=== PATIENT | male | born 1950 | race Caucasian/White ===

== ENCOUNTER 2021-12-15 06:52 | Observation (INO) ==
[2021-12-15] MEDS ORDERED: fentaNYL 100 mcg/2 ml 50 MCG/ML VIAL ONE (08:09)
[2021-12-15] MEDS ORDERED: Midazolam 5 mg/5 ml VIAL 1 mg/ml 5 ml VIAL (5 mg) ONE (08:09)
[2021-12-15] MEDS ORDERED: nitroGLYCERIN DRIP (PHA MIX) 25,000 MCG/250 ML BAG ONE (08:10)
[2021-12-15] MEDS ORDERED: VERAPAMIL 2.5 MG/ML 2 ML VIAL ** 5 mg/2 ml ONE (08:10)
[2021-12-15] MEDS ORDERED: Heparin 1,000 UNIT/ML 10 ml (10,000 UNITS) CATHLAB/DIALYSIS ONE (08:10)
[2021-12-15] MEDS ORDERED: Iohexol 350 (CONTRAST) 200 ML MDV IV ONE ×2 (08:10→09:45)
[2021-12-15] MEDS ORDERED: Heparin 2 UNITS/ML 1000 mls 2,000 ML IV ONE (08:10)
[2021-12-15] MEDS ORDERED: Lidocaine 1% MPF 5 ML VIAL ONE (08:11)
[2021-12-15] MEDS ORDERED: Phenylephrine 40 mcg/mL 10mL (400mcg) SYRINGE ONE (09:13)
[2021-12-15 09:40] LABS: POC SO2 94 %
[2021-12-15 09:40] LABS: POC SO2 68 %
[2021-12-15] MEDS ORDERED: Bivalirudin 250 MG VIAL ONE ×2 (09:42→10:16)
[2021-12-15] MEDS ORDERED: Heparin 2 UNITS/ML 1000 mls 1,000 ML IV ONE (09:53)
[2021-12-16 05:43] LABS: ABS Basophils 0.1 10^3/ul (0-0.2); ABS Eosinophils 0.2 10^3/ul (0-0.6); ABS Monocytes 0.9 10^3/ul (0-0.8); ABS Neutrophils 5.5 10^3/ul (1.5-7.7); Eosinophil % 2.3 %; Hematocrit 44 % (42-52); Hemoglobin 15.3 g/dL (14.0-18.0); Lymphocyte % 30.8 %; Mean Corpuscular HGB Conc 35 g/dL (31-36); Mean Corpuscular Hemoglobin 31 pg (27-31); Mean Corpuscular Volume 90 fL (80-94); Mean Platelet Volume 8.2 fL (7.4-10.4); Platelet Count 151 10^3/uL (150-450); Red Blood Count 4.91 10^6 /uL (4.18-5.48); Red Cell Distribution Width 13 % (10-15); White Blood Count 9.7 10^3/uL (3.5-10.8)
[2021-12-16 06:37] LABS: Albumin 3.9 g/dL (3.2-5.2); Albumin/Globulin Ratio 1.6 (1-3); Globulin 2.5 g/dL (2-4); Magnesium 2.1 mg/dL (1.9-2.7); Potassium 4.3 mmol/L (3.5-5.0); Total Bilirubin 0.5 mg/dL (0.2-1.0); Total Protein 6.4 g/dL (6.4-8.9); eGFR CKD-EPI 79.5 (>60)
[2021-12-16 11:27] VITALS: BP 133/70
== END 2021-12-16 11:27 | disposition home or self-care (01) ==
LOC: CHICATH 06:52 → ICU 10:52 → INTOOBSV 10:52
PROVIDERS: ATTEND Internal Medicine

== ENCOUNTER 2024-05-19 17:16 | Inpatient (IN) ==
[2024-05-19] MEDS: Ondansetron 4 mg VIAL 2 MG/ML 2 ml VIAL IV ONE (22:12)
[2024-05-19] MEDS: Lactated Ringers 1000 ml BAG 1,000 ML IV ONE (22:12)
[2024-05-19 22:36] LABS: Hematocrit 47.4 % (38-53); Hemoglobin 16.1 g/dL (13.2-16.3); Mean Corpuscular Hemoglobin 30.2 pg (27-33); Mean Corpuscular Volume 88.9 fL (80-97); Platelet Count 189 10^3/uL (150-450); Red Blood Count 5.34 10^6/uL (4.06-5.63); Red Cell Distribution Width 13.9 % (12-17); White Blood Count 20.7 10^3/uL (3.6-10.2)
[2024-05-19 23:11] LABS: ALT 95 U/L (7-52); Albumin/Globulin Ratio 1.1 (1-3); Alkaline Phosphatase 89 U/L (35-149); Anion Gap 10 mmol/L (2-16); Blood Urea Nitrogen 26 mg/dL (6-24); C Reactive Protein 85.75 mg/L (<8.01); CO2 Carbon Dioxide 23 mmol/L (22-32); Calcium 9.5 mg/dL (8.6-10.3); Chloride 99 mmol/L (101-111); Creatinine, Serum 1.17 mg/dL (0.67-1.17); Globulin 3.5 g/dL (2-4); Glucose 137 mg/dL (70-100); Sodium 132 mmol/L (135-145); Total Bilirubin 0.5 mg/dL (0.2-1.0); Total Protein 7.5 g/dL (6.4-8.9); eGFR CKD-EPI 65.8 (>60)
[2024-05-20 00:05] LABS: Urine Appearance Turbid; Urine Bilirubin Negative (Negative); Urine Blood Trace (Negative); Urine Color Yellow; Urine Glucose Negative (Negative); Urine Ketones Negative (Negative); Urine Nitrite 2+ (Negative); Urine Protein 1+ (>=30 mg/dL) (Negative); Urine Specific Gravity 1.029 (1.002-1.030); Urine Urobilinogen Negative (Negative); Urine pH 5.5 (5.0-8.0)
[2024-05-20 00:29] LABS: ABS Basophils 0.1 10^3/uL (0.0-0.1); ABS Eosinophils 0.1 10^3/uL (0.0-0.5); ABS Lymphocytes 2.5 10^3/uL (1.0-4.8); ABS Monocytes 1.6 10^3/uL (0.0-1.1); ABS Neutrophils 16.5 10^3/uL (1.5-7.6); Eosinophil % 0.5 %; Lymphocyte % 11.9 %
[2024-05-20 00:31] LABS: Urine Bacteria 3+ /HPF (Absent); Urine Red Blood Cell 1+(3-5/hpf) /HPF (0-Trace); Urine White Blood Cell 3+(>20/hpf) /HPF (0-Trace)
[2024-05-20] MEDS: Iohexol 350 (CONTRAST) 500 ML MDV IV ONE (01:18)
[2024-05-20 01:47] LABS: Potassium Redraw 4.9 mmol/L (3.5-5.0)
[2024-05-20] MEDS: cefTRIAXone 2 gm/50 mL D5W 2 GM/50 ML BAG IV ONE (03:01)
[2024-05-21] MEDS: cefTRIAXone 2 gm/50 mL D5W 2 GM/50 ML BAG IV SCH (02:55)
[2024-05-21 07:45] LABS: Hematocrit 43.9 % (38-53); Hemoglobin 14.9 g/dL (13.2-16.3); Mean Corpuscular Hemoglobin 30.5 pg (27-33); Mean Corpuscular Volume 89.9 fL (80-97); Mean Platelet Volume 8.3 fL (7.5-11.2); Platelet Count 156 10^3/uL (150-450); Red Blood Count 4.89 10^6/uL (4.06-5.63); Red Cell Distribution Width 13.8 % (12-17); White Blood Count 16.4 10^3/uL (3.6-10.2)
[2024-05-21] MEDS ORDERED: Polyethylene Glycol 3350 17 GM PACKET PO PRN (07:46)
[2024-05-21] MEDS ORDERED: Senna TAB 8.6 mg TAB PO PRN (07:46)
[2024-05-21 08:36] LABS: Anion Gap 10 mmol/L (2-16); Blood Urea Nitrogen 21 mg/dL (6-24); CO2 Carbon Dioxide 24 mmol/L (22-32); Calcium 8.1 mg/dL (8.6-10.3); Chloride 100 mmol/L (101-111); Creatinine, Serum 1.02 mg/dL (0.67-1.17); Glucose 134 mg/dL (70-100); Sodium 134 mmol/L (135-145); eGFR CKD-EPI 77.6 (>60)
[2024-05-21] MEDS ORDERED: Zosyn per Pharmacy NOTE FOLLOW UP SCH (09:00)
[2024-05-21 09:07] LABS: ABS Basophils 0.1 10^3/uL (0.0-0.1); ABS Eosinophils 0.1 10^3/uL (0.0-0.5); ABS Lymphocytes 2.5 10^3/uL (1.0-4.8); ABS Monocytes 1.4 10^3/uL (0.0-1.1); ABS Neutrophils 12.1 10^3/uL (1.5-7.6); Eosinophil % 0.5 %; Lymphocyte % 15.6 %; RBC Morphology Normal (Normal)
[2024-05-21] MEDS: Piperacillin/Tazobac 3.375 BAG 3.375 GM/100 ML BAG IV ONE (09:42)
[2024-05-21] MEDS: Cholecalciferol (VIT D3) 1,000 unit TAB PO SCH (10:18)
[2024-05-21] MEDS: METFORMIN 500 MG PO SCH (10:19)
[2024-05-21] MEDS ORDERED: Naloxone 0.4 mg VIAL 0.4 mg/ml 1 ml VIAL IV PRN ×3 (10:23→11:45)
[2024-05-21] MEDS ORDERED: fentaNYL 100 mcg/2 ml 50 MCG/ML VIAL IV PRN ×2 (10:23→11:45)
[2024-05-21] MEDS ORDERED: Ondansetron 4 mg VIAL 2 MG/ML 2 ml VIAL IV PRN ×2 (10:23→11:45)
[2024-05-21] MEDS ORDERED: Metoclopramide 5 MG/ML VIAL (10 mg) IV PRN (10:23)
[2024-05-21] MEDS: Buffered Lidocaine 1% SYRIN 1 ml INTRADERM ONE (11:05)
[2024-05-21] MEDS: Scopolamine 1 mg/72hr PATCH TRANSDERM ONE (11:06)
[2024-05-21] MEDS ORDERED: Propofol 10 MG/ML 20 ML BTL ONE (11:36)
[2024-05-21] MEDS ORDERED: fentaNYL 250 mcg/5 ml 50 MCG/ML 5 ml VIAL (250 MCG) ONE (11:36)
[2024-05-21] MEDS ORDERED: Lidocaine 2% PF 5 ML VIAL ONE (11:37)
[2024-05-21] MEDS ORDERED: Rocuronium 50 mg VIAL 10 mg/ml 5 ml VIAL (50 mg) ONE (11:37)
[2024-05-21] MEDS ORDERED: HYDROmorphone 1 MG/1 ML SYRINGE IV PRN (11:45)
[2024-05-21] MEDS ORDERED: Phenylephrine 40 mcg/mL 10mL (400mcg) SYRINGE ONE (11:55)
[2024-05-21] MEDS ORDERED: Midazolam 2 mg/2 ml VIAL 1 mg/ml 2 ml VIAL (2 mg) ONE (14:33)
[2024-05-21] MEDS ORDERED: Dexamethasone IV 4 MG/ML VIAL 1 ml VIAL ONE (14:39)
[2024-05-21] MEDS ORDERED: Ondansetron 4 mg VIAL 2 MG/ML 2 ml VIAL ONE (14:39)
[2024-05-21] MEDS ORDERED: Desflurane 240 ML INH ONE (15:04)
[2024-05-21] MEDS: Ampicillin ADVAN 2 GM in NS 0.9% 100 ML 100 ML IVPB ONE (15:35)
[2024-05-21] MEDS: Lactated Ringers 1000 ml BAG 1,000 ML IV SCH (15:43)
[2024-05-21] MEDS: Metoclopramide 5 MG/ML VIAL (10 mg) IV SLOW PU ONE (15:43)
[2024-05-21] MEDS: NS 0.9% IVPB ONE (15:55)
[2024-05-21] MEDS: GENTAMICIN ADULT IVPB ONE (15:55)
[2024-05-21] MEDS: ZOSYN 3.375 GM Q8H per EXTENDED INFUSION IV SCH ×2 (16:32→17:36)
[2024-05-21] MEDS: Enoxaparin 40 MG/0.4 ML SYR SUBCUT SCH (20:18)
[2024-05-22] MEDS: Calcium Carb (TUMS) 500 mg CHEW TAB PO PRN (01:34)
[2024-05-22 06:10] LABS: Hematocrit 42.7 % (38-53); Hemoglobin 14.2 g/dL (13.2-16.3); Mean Corpuscular Hemoglobin 29.8 pg (27-33); Mean Corpuscular Hgb Conc 33.3 g/dL (31-36); Mean Corpuscular Volume 89.3 fL (80-97); Mean Platelet Volume 8.5 fL (7.5-11.2); Platelet Count 176 10^3/uL (150-450); Red Blood Count 4.78 10^6/uL (4.06-5.63); Red Cell Distribution Width 13.7 % (12-17); White Blood Count 34.2 10^3/uL (3.6-10.2)
[2024-05-22] MEDS: Ondansetron 4 mg VIAL 2 MG/ML 2 ml VIAL IV PRN (06:45)
[2024-05-22 06:48] LABS: Calcium 8.2 mg/dL (8.6-10.3); Creatinine, Serum 1.05 mg/dL (0.67-1.17); Potassium 4.6 mmol/L (3.5-5.0)
[2024-05-22 07:28] LABS: ABS Basophils 0.2 10^3/uL (0.0-0.1); ABS Lymphocytes 2.7 10^3/uL (1.0-4.8); ABS Monocytes 2.2 10^3/uL (0.0-1.1); ABS Nucleated RBC 0.01 10^3/ul; Eosinophil % 0.1 %
[2024-05-23 06:05] LABS: ABS Basophils 0.1 10^3/uL (0.0-0.1); ABS Eosinophils 0.1 10^3/uL (0.0-0.5); ABS Lymphocytes 2.2 10^3/uL (1.0-4.8); ABS Monocytes 1.3 10^3/uL (0.0-1.1); ABS Neutrophils 11.5 10^3/uL (1.5-7.6); Eosinophil % 0.6 %; Hematocrit 40.7 % (38-53); Lymphocyte % 14.4 %; Mean Corpuscular Hemoglobin 30.6 pg (27-33); Mean Corpuscular Hgb Conc 34.3 g/dL (31-36); Mean Corpuscular Volume 89.3 fL (80-97); Mean Platelet Volume 8.3 fL (7.5-11.2); Platelet Count 182 10^3/uL (150-450); Red Blood Count 4.55 10^6/uL (4.06-5.63); Red Cell Distribution Width 13.9 % (12-17); White Blood Count 15.2 10^3/uL (3.6-10.2)
[2024-05-23 06:49] LABS: Creatinine, Serum 1.04 mg/dL (0.67-1.17); Magnesium 2.2 mg/dL (1.9-2.7); Phosphorus 3.4 mg/dL (2.5-5.0); Potassium 4.5 mmol/L (3.5-5.0); eGFR CKD-EPI 75.8 (>60)
[2024-05-23 10:10] VITALS: BP 127/66
[2024-05-23] MEDS ORDERED: Dextrose 50% Syringe 50 ml 25 GM/50 ML SYRINGE IV PUSH PRN (11:46)
== END 2024-05-23 13:00 | disposition home or self-care (01) | DRG 854 ==
LOC: EDHOLD 17:16 → ED 17:16 → OBSVTOIN 05-21 07:46 → AA 05-21 11:19 → SUATTDRO 05-21 16:42
PROVIDERS: ADMIT Internal Medicine; ATTEND Internal Medicine